=== PATIENT | female | born 1940 | race Hispanic/Latino ===

== ENCOUNTER 2018-10-29 10:49 | Outpatient (RCR) | payer MEDICARE | END 2018-11-17 | LOC: PT 10:49 | PROVIDERS: ATTEND Specialist | DX: M17.0 Bilateral primary osteoarthritis of knee (principal) ==

== ENCOUNTER 2021-06-02 13:21 | Outpatient (RCR) | payer MEDICARE | END 2021-06-20 | LOC: PT 13:21 | PROVIDERS: ATTEND Specialist | DX: M17.11 Unilateral primary osteoarthritis, right knee (principal) ==